=== PATIENT | female | born 1950 | race Caucasian/White ===

== ENCOUNTER 2016-09-15 09:34 | Inpatient (IN) | payer MEDICARE, MEDICAID ==
[2016-09-15] MEDS ORDERED: Sodium Chloride 0.9% 10 ML Syringe FLUSH PRN (09:50)
[2016-09-15] MEDS ORDERED: Sodium Chloride 0.9% 500 ML IV ONE (09:54)
[2016-09-15] MEDS ORDERED: Albuterol/Ipratropium 3.0-0.5 MG/3 ML Neb Soln NEB ONE (09:55)
[2016-09-15] MEDS ORDERED: Piperacillin/Tazobactam 4.5 GM in Sodium Chloride 0.9% 100 ML IV ONE (10:19)
[2016-09-15 10:38] LABS: CHLORIDE,CL 112 mmol/L (98-107); SODIUM,NA 151 mmol/L (136-145)
[2016-09-15] MEDS ORDERED: methylPREDNISolone Sodium Succinate 125 MG/2 ML SDV IV ONE (11:31)
[2016-09-15] MEDS: D5 1/2 NS w/ 20 mEq/L KCl 1,000 ML IV SCH ×2 (12:30→21:04)
--- NOTE | 2016-09-15 12:45 | ER ---
Date of Service: 09/15/2016 SUBJECTIVE: Torey presents to the emergency room via ambulance. The patient is a resident at [facility]. Apparently, the patient had been experiencing some cough and chest congestion and had been prescribed azithromycin and has completed her course of this. She continues to experience a worsening respiratory distress, hypoxia, fever, and cough. Staff states that she has been experiencing increased lethargy and O2 saturations in the low to mid 80s. They did place her on oxygen at the [facility] and her oxygen saturation was approximately 90% on 2 L of oxygen per nasal cannula. The patient does have a history of swallowing difficulties and is at risk for aspiration pneumonia. She again also is a resident at [facility]. PAST MEDICAL HISTORY: 1. Chronic obstructive pulmonary disease. 2. Dementia. 3. Primary hypertension. 4. Heart failure. 5. Major depressive disorder. 6. History of transient ischemic attack. 7. Personal history of MRSA. 8. History of traumatic brain injury. 9. Drug-induced dyskinesia. 10.History of constipation. 11.Osteoarthritis. MEDICATIONS: 1. Acetaminophen 325 mg 2 tablets by mouth 3 times a day. 2. Albuterol nebs 2.5 mg every 2 hours as needed for cough. 3. Ativan 0.25 mg by mouth b.i.d. 4. Bisacodyl 5 mg by mouth every 72 hours as needed for constipation. 5. Budesonide 1 dose via nebulizer 2 times a day. She probably gave her some steroids to Jaime. 6. Citalopram 10 mg by mouth once daily. 7. DuoNeb 1 dose inhaled by nebulizer 4 times a day. 8. Lasix 10 mg by mouth every other morning. 9. Senna Plus 1 tablet by mouth once daily. 10.Valproic acid 1000 mg by mouth once daily. 11.Zyprexa 10 mg 1 tablet by mouth once daily. ALLERGIES: NKDA. REVIEW OF SYSTEMS: Unobtainable. PHYSICAL EXAMINATION: General: This is a 66-year-old female, who is in mild to moderate amount of respiratory distress. Vital Signs: Blood pressure is 116/69, pulse rate is 99, temperature is 38.7, respiratory rate 40, and O2 saturation 94% on 2 L oxygen per nasal cannula. Skin: Warm to touch. Pale and dry. HEENT: Mouth, oral mucosa is somewhat dry. No erythema or exudate noted in the hypopharynx. Neck: Supple. No masses. There is no lymphadenopathy. No JVD noted. Hepatojugular reflux is within normal limits. Lungs: Diminished throughout. She does have crackles and diminished breath sounds bilaterally. Heart: Regular rate and rhythm. Abdomen: Soft, nontender. There is no hepatosplenomegaly noted. There is no masses noted. Extremities: Without edema. Neurologic: She is somnolent but easily arousable. She is not able to recall where she is, but does know her name. She was able to state that she was not feeling well. DIAGNOSTIC DATA: A 12-lead EKG was obtained showing a sinus rhythm without any acute ST or T-wave abnormalities. A portable chest x-ray was obtained. She does have evidence of bilateral infiltrates. Hematology; WBC is 11.0, hemoglobin is 16.3, and platelets are 192. Coags, PT is 12.5, INR is 1.1. Chemistry; sodium is 151, potassium is 3.6, chloride is 112, bicarb is 32, BUN is 32, creatinine is 1.1. GFR is 49, glucose is 120, lactic acid is 3.0. Calcium is 9.4, corrected calcium is 10.1. AST is 53, ALT is 74, alkaline phosphatase is 103. Troponin is 0.018. C-reactive protein is 1.1, total protein is 7.6, albumin is 3.1. Urinalysis reveals a dark cloudy specimen. Specific gravity is 1.015. This was after approximately 250 mL fluid bolus. Protein was 30, negative for glucose. She did have trace ketones, negative occult blood, nitrites, small bilirubin, 4 urobilinogen, negative leukocyte esterase. She did have few bacteria. EMERGENCY ROOM COURSE: The patient was again on oxygen per nasal cannula, it is approximately 2 L/minute. She was given a DuoNeb breathing treatment. She was given Zosyn 4.5 g IV in the ER. She was given a 500 mL normal saline fluid bolus. She is going to be given 125 mg of Solu-Medrol IV. The patient remained stable in my care in the emergency room. ASSESSMENT: 1. Healthcare-acquired versus aspiration pneumonia. 2. Chronic obstructive pulmonary disease exacerbation. PLAN: The patient will be admitted to our facility acutely. I did speak with Forest Goff regarding this patient. Discussed the addition of vancomycin for this patient. He felt that she did not need the vancomycin, but I am going to contact him and let him know that the patient does have a history of MRSA. The patient is a code 2; do not resuscitate, do not intubate. MWK: 09/15/2016 11:36:18 MODL: 09/15/2016 12:34:31 /[id number]
[2016-09-15] MEDS: Piperacillin/Tazobactam 3.375 GM in Sodium Chloride 0.9% 100 ML IV SCH (17:26)
[2016-09-15] MEDS ORDERED: Acetaminophen 500 MG Tab PO PRN (19:40)
[2016-09-15] MEDS: methylPREDNISolone Sodium Succinate 125 MG/2 ML SDV IV SCH (19:56)
[2016-09-16] MEDS: Piperacillin/Tazobactam 3.375 GM in Sodium Chloride 0.9% 100 ML IV SCH ×4 (00:11→17:28)
[2016-09-16] MEDS: methylPREDNISolone Sodium Succinate 125 MG/2 ML SDV IV SCH ×3 (04:34→21:17)
[2016-09-16] MEDS: D5 1/2 NS w/ 20 mEq/L KCl 1,000 ML IV SCH (05:41)
[2016-09-16] MEDS: Enoxaparin 40 MG/0.4 ML Syringe SUBCUT SCH (07:36)
[2016-09-16 07:40] LABS: CHLORIDE,CL 115 mmol/L (98-107); SODIUM,NA 151 mmol/L (136-145)
[2016-09-16] MEDS ORDERED: Albuterol 0.083% 2.5 MG/3 ML Neb Soln NEB PRN (08:27)
[2016-09-16] MEDS ORDERED: Hydrocortisone 1% Crm 30 GM Tube TOP PRN (08:27)
[2016-09-16] MEDS ORDERED: Bisacodyl 5 MG Tab PO PRN (08:27)
[2016-09-16] MEDS ORDERED: BIOTENE MOISTURIZING MOUTH PO PRN (08:27)
[2016-09-16] MEDS ORDERED: Furosemide 20 MG Tab PO SCH (08:45)
--- NOTE | 2016-09-16 09:12 | PCM.PN ---
- General Info Date of Service: 09/16/16 Admission Dx/Problem (Free Text): Subjective: Patient was admitted yesterday from the ER by physician's entry level marketing assistant for fever and mild hypoxia. Possible pneumonitis, healthcare associated versus aspiration, versus exacerbation of COPD. She had a mild leukocytosis, mildly hypernatremic from pre-body water deficit. Decreased access to fluids from her chronic half-way debility. No vomiting no abdominal pain no dysuria her urine analysis is pretty unremarkable. No convincing infiltrates by chest x- ray. She's done well overnight, did spike one mild fever. Oxygen blood pressure improved. Objective: Temperature 36.2 Celsius, pulse 78, oxygen saturation 98% on 2 L, blood pressure 108/70. Alert female laying in bed no acute distress she denies any pain or dyspnea. Lungs reveal diminished sounds both bases no wheeze rhonchi or rales. Heart regular rate and rhythm. Abdomen soft nontender extremities warm well perfused without edema. Labs: No leukocytosis has resolved. She remains hypernatremic at 151 hyperchloremic at 115. Assessment and plan: Fever, hypoxia. Appears to be more exacerbation of COPD, possibly viral, had been on Z-Dalton prior. Improved on Solu-Medrol and Zosyn here. Leukocytosis has resolved. No sarmad infiltrate on x-ray beyond her chronic atelectasis basilar from debility. Wean oxygen today, patient's baseline at home is 92% on room air. Possible discharge to [facility] in a.m. on PO prednisone and augmentin if continued improvement Hypernatremia This is a free water deficit of ~1.2L from her generalized debility and recent illness. Change D5 half with potassium to plain half- normal @125cc/hr. Most importantly stop nothing by mouth and allow her access to water, goal be 1 L of plain water today along with a regular diet. Recheck electrolytes in a.m. should be closer to her baseline sodium of 145 by then. Free Water Deficit in Hypernatremia from [employer] on 09/16/2016 RESULT SUMMARY: 1.2 L Free Water Deficit INPUTS: Sex > Female Age range > Elderly Weight > 145 lbs Sodium > 151 mEq/L Sodium desired > 145 mEq/L - Patient Data Vitals - most recent: Last Vital Signs Temp 36.4 C 09/16/16 05:56 Pulse 73 09/16/16 05:56 Resp 20 03/09/17 05:56 BP 108/93 H 09/16/16 05:56 Pulse Ox 97 09/16/16 07:48 Weight - most recent: 61.326 kg I&O - last 24 hours: Intake & Output 09/15/16 09/16/16 09/16/16 22:59 06:59 14:59 Intake Total 694 1668 0 Balance 694 1668 0 Lab Results last 24 hrs: Laboratory Results - last 24 hr 09/16/16 09/16/16 Range/Units 06:33 06:33 WBC 6.5 (4.0-10.0) x10^3/uL RBC 4.44 (4.00-5.50) x10^6/uL Hgb 14.2 (12.0-16.0) g/dL Hct 45.3 (33.0-47.0) % MCV 102.0 H (78.0-93.0) fL MCH 32.0 (26.0-32.0) pg MCHC 31.3 L (32.0-36.0) g/dL RDW Coeff of Arun 12.9 (10.0-15.0) % Plt Count 159 (130-400) x10^3/uL Sodium 151 H (136-145) mmol/L Potassium 4.0 (3.5-5.1) mmol/L Chloride 115 H (98-107) mmol/L Carbon Dioxide 28 (21-32) mmol/L BUN 26 H (7-18) mg/dL Creatinine 0.8 (0.55-1.02) mg/dL Est Cr Clr Drug Dosing 65.16 mL/min Estimated GFR (MDRD) > 60 Glucose 158 H (74-106) mg/dL Calcium 7.8 L (8.5-10.1) mg/dL Med Orders - Current: Current Medications Acetaminophen (Tylenol Extra Strength) 500 mg PO Q6H PRN PRN Reason: Fever Last Admin: 09/15/16 19:55 Dose: 500 mg Acetaminophen (Tylenol) 650 mg PO TID KOREY Albuterol (Proventil Neb Soln) 2.5 mg NEB Q2H PRN PRN Reason: Cough Albuterol/Ipratropium (Duoneb 3.0-0.5 Mg/3 Ml) 3 ml NEB QID KOREY Bisacodyl (Dulcolax) 5 mg PO Q72H PRN PRN Reason: Constipation Budesonide (Pulmicort) 0.5 mg NEB BID [facility] Citalopram Hydrobromide (Celexa) 10 mg PO DAILY [facility] Enoxaparin Sodium (Lovenox) 40 mg SUBCUT DAILY [facility] Last Admin: 09/16/16 07:36 Dose: 40 mg Furosemide (Lasix) 10 mg PO Q48H [facility] Hydrocortisone (Hydrocortisone 1% Crm) gm TOP DAILY PRN PRN Reason: eczema Piperacillin Sod/Tazobactam (Sod 3.375 gm/ Sodium Chloride) 100 mls @ 200 mls/ hr IV Q6H [facility] Last Admin: 09/16/16 05:41 Dose: 200 mls/hr Sodium Chloride (Sodium Chloride 0.45%) 1,000 mls @ 125 mls/hr IV ASDIRECTED [facility] Lorazepam (Ativan) 0.25 mg PO BID [facility] Methylprednisolone Sodium Succinate (Solu-Medrol) 125 mg IV Q8H [facility] Last Admin: 09/16/16 04:34 Dose: 125 mg Non-Formulary Medication (Saliva Stimulant Agents Comb.3 [Biotene Moisturizing Mouth]) 1 spray PO ASDIRECTED PRN PRN Reason: Dryness Non-Formulary Medication (Saliva Stimulant Agents Comb.3 [Biotene Moisturizing Mouth]) 1 spray PO DAILY [facility] Non-Formulary Medication (Valproic Acid (As Sodium Salt) [Valproic Acid]) 500 mg PO DAILY [facility] Non-Formulary Medication (Valproic Acid (As Sodium Salt) [Valproic Acid]) 1, 000 mg PO DAILY [facility] Olanzapine (Zyprexa) 10 mg PO DAILY [facility] Senna (Senna) 8.6 mg PO QPM [facility] Sodium Chloride (Saline Flush) 10 ml FLUSH ASDIRECTED PRN PRN Reason: Keep Vein Open Discontinued Medications Albuterol/Ipratropium (Duoneb 3.0-0.5 Mg/3 Ml) 3 ml NEB ONETIME ONE Stop: 09/15/16 09:56 Last Admin: 09/15/16 10:26 Dose: 3 ml Sodium Chloride (Normal Saline) 500 mls @ 1,000 mls/hr IV .BOLUS ONE Stop: 09/15/16 10:23 Last Admin: 09/15/16 10:20 Dose: 1,000 mls/hr Piperacillin Sod/Tazobactam (Sod 4.5 gm/ Sodium Chloride) 100 mls @ 200 mls/hr IV ONETIME ONE Stop: 09/15/16 10:48 Last Admin: 09/15/16 10:35 Dose: 200 mls/hr Potassium Chloride/Dextrose/Sod Cl (D5 1/2 Ns W/ 20 Meq/L Kcl) 1,000 mls @ 125 mls/hr IV ASDIRECTED [facility] Last Admin: 09/16/16 05:41 Dose: 125 mls/hr Methylprednisolone Sodium Succinate (Solu-Medrol) 125 mg IV ONETIME ONE Stop: 09/15/16 11:32 Last Admin: 09/15/16 11:42 Dose: 125 mg - Problem List Review Problem List Initiated/Reviewed/Updated: Yes - My Orders Last 24 Hours: My Active Orders 09/15/16 19:40 Acetaminophen [Tylenol Extra Strength] 500 mg PO Q6H PRN 09/16/16 08:27 Albuterol [Proventil Neb Soln] 2.5 mg NEB Q2H PRN Bisacodyl [Dulcolax] 5 mg PO Q72H PRN Hydrocortisone [Hydrocortisone 1% Crm] 1 appful TOP DAILY PRN Saliva Stimulant Agents Comb.3 [Biotene Moisturizing Mouth] 1 spray PO ASDIRECTED PRN 09/16/16 08:30 Furosemide [Lasix] 10 mg PO Q48H Sodium Chloride 0.45% @ 125 MLS/HR(1,000ml) Sodium Chloride 0.45% 1,000 ml IV ASDIRECTED Valproic Acid (As Sodium Salt) [Valproic Acid] 1,000 mg PO DAILY Valproic Acid (As Sodium Salt) [Valproic Acid] 500 mg PO DAILY 09/16/16 09:02 RT Ventilator Weaning [RC] .As Directed 09/16/16 12:00 Acetaminophen [Tylenol] 650 mg PO TID Albuterol/Ipratropium [DuoNeb 3.0-0.5 MG/3 ML] 3 ml NEB QID 09/16/16 20:00 Budesonide [Pulmicort] 0.5 mg NEB BID LORazepam [Ativan] 0.25 mg PO BID Sennosides [Senna] 8.6 mg PO QPM 03/09/17 Lunch Regular Diet [DIET] 09/17/16 05:11 BASIC METABOLIC PANEL,BMP [CHEM] AM 09/17/16 08:00 Citalopram [Celexa] 10 mg PO DAILY OLANZapine [ZyPREXA] 10 mg PO DAILY Saliva Stimulant Agents Comb.3 [Biotene Moisturizing Mouth] 1 spray PO DAILY
[2016-09-16] MEDS: Citalopram 10 MG Tab PO SCH (09:39)
[2016-09-16] MEDS: LORazepam 0.5 MG Tab PO SCH ×2 (09:39→21:14)
[2016-09-16] MEDS: OLANZapine 10 MG Tab PO SCH (09:39)
[2016-09-16] MEDS: Valproic Acid 250 MG/5 ML Soln 5 ML UD Cup PO SCH (09:39)
[2016-09-16] MEDS: Sodium Chloride 0.45% 1,000 ML IV SCH ×2 (09:43→18:51)
[2016-09-16] MEDS: Albuterol/Ipratropium 3.0-0.5 MG/3 ML Neb Soln NEB SCH ×3 (10:52→21:19)
[2016-09-16] MEDS: Acetaminophen 325 MG Tab PO SCH ×3 (11:19→21:13)
[2016-09-16] MEDS ORDERED: Valproic Acid 250 MG/5 ML Soln 5 ML UD Cup PO SCH (20:00)
[2016-09-16] MEDS ORDERED: Sennosides 8.6 MG Tab PO SCH (20:00)
[2016-09-16] MEDS: Budesonide 0.5 MG/2 ML Neb Susp NEB SCH (21:20)
[2016-09-17] MEDS: Piperacillin/Tazobactam 3.375 GM in Sodium Chloride 0.9% 100 ML IV SCH ×3 (00:36→11:26)
[2016-09-17] MEDS: Sodium Chloride 0.45% 1,000 ML IV SCH (03:31)
[2016-09-17] MEDS: methylPREDNISolone Sodium Succinate 125 MG/2 ML SDV IV SCH ×2 (05:27→11:25)
[2016-09-17 06:49] LABS: CHLORIDE,CL 111 mmol/L (98-107); SODIUM,NA 146 mmol/L (136-145)
[2016-09-17] MEDS: Albuterol/Ipratropium 3.0-0.5 MG/3 ML Neb Soln NEB SCH ×2 (07:10→11:03)
[2016-09-17] MEDS: Budesonide 0.5 MG/2 ML Neb Susp NEB SCH (07:11)
[2016-09-17] MEDS ORDERED: BIOTENE MOISTURIZING MOUTH PO SCH (08:00)
[2016-09-17] MEDS: Valproic Acid 250 MG/5 ML Soln 5 ML UD Cup PO SCH (08:03)
[2016-09-17] MEDS: LORazepam 0.5 MG Tab PO SCH (08:03)
[2016-09-17] MEDS: OLANZapine 10 MG Tab PO SCH (08:03)
[2016-09-17] MEDS: Citalopram 10 MG Tab PO SCH (08:03)
[2016-09-17] MEDS: Enoxaparin 40 MG/0.4 ML Syringe SUBCUT SCH (08:04)
[2016-09-17] MEDS: Acetaminophen 325 MG Tab PO SCH ×2 (08:05→11:25)
[2016-09-17 10:26] VITALS: BP 109/53
--- NOTE | 2016-09-17 21:00 | PCM.DCSUM1 ---
Discharge Summary - Discharge Data Discharge Date: 09/17/16 Discharge Disposition: DC/Tfer to SNF 03 Condition: Fair - Discharge Plan Prescriptions/Med Rec: Levofloxacin [Levaquin] 250 mg PO Q24H #5 tablet Home Medications: Home Meds Acetaminophen [Tylenol] 650 mg PO TID 09/15/16 [History] Albuterol Sulfate 2.5 mg NEB Q2H PRN 09/15/16 [History] Albuterol/Ipratropium [DuoNeb 3.0-0.5 MG/3 ML] 3 ml NEB QID 09/15/16 [History] Bisacodyl 5 mg PO Q72H PRN 09/15/16 [History] Budesonide [Pulmicort] 0.5 mg NEB BID 09/15/16 [History] Citalopram Hydrobromide [Celexa] 10 mg PO DAILY 09/15/16 [History] Furosemide [Lasix] 10 mg PO Q48H 09/15/16 [History] Hydrocortisone [Hydrocortisone 1% Crm] 1 appful TOP DAILY PRN 09/15/16 [History] LORazepam [Ativan] 0.25 mg PO BID 09/15/16 [History] OLANZapine [ZyPREXA] 10 mg PO DAILY 09/15/16 [History] Saliva Stimulant Agents Comb.3 [Biotene Moisturizing Mouth] 1 spray PO ASDIRECTED PRN 09/15/16 [History] Saliva Stimulant Agents Comb.3 [Biotene Moisturizing Mouth] 1 spray PO DAILY 02/24 [History] Sennosides [Senna] 8.6 mg PO QPM 09/15/16 [History] Valproic Acid (As Sodium Salt) [Valproic Acid] 1,000 mg PO DAILY 09/15/16 [ History] Valproic Acid (As Sodium Salt) [Valproic Acid] 500 mg PO DAILY 09/15/16 [History ] Acetaminophen [Tylenol Extra Strength] 500 mg PO Q6H PRN #0 tablet 09/17/16 [Rx] Levofloxacin [Levaquin] 250 mg PO Q24H #5 tablet 09/17/16 [Rx] Forms: ED Department Discharge Referrals: Te Hayes MD [Primary Care Provider] - - Discharge Summary/Plan Comment Discharge Summary/Plan Comment: Final diagnosis: -Exacerbation of COPD Secondary diagnoses: -Schizoaffective disorder -Dementia -Atherosclerosis Reason for admission: Cough, fever, hypoxia in spite of Rx with Zithromax for exacerbation of COPD. Has previously had a spell of very poor oral intake and had been on Hospice some months ago but had recovered and no longer on Hospice care. Regular Psych F/U for her concern affective disorder. Hx of MRSA. Initial Findings: -In moderate respiratory distress -CXR difficult to read, was a single view and patient unable to sit up -Somnolent -Oximetry 94% on oxygen 2L/min -Mild hypernatremia of 151, K+ 3.6; GFR 49, lactic acid 3.0 Treatment and course in Hospital: She was started on IV Zosyn, soon became afebrile and remained so. Her respiratory distress cleared rather quickly, her blood cultures remain negative and with that and her clinical improvement, including becoming much more alert and talking eagerly, it was felt she could switch to oral antibiotic and go back to [facility] on the third hospital day. She was weaned from oxygen on the third hospital day before D/C. Condition on discharge: -Alert and speaking, although has dementia and schizoaffective disorder -Heart sounds normal and regular -Lungs clear -Lying flat without dyspnea -Oximetry OK on room air Discharge Plan: -Taken off of oxygen -Levaquin 250 mg p.o. daily 5 days -Continue same medications otherwise - Patient Data Vitals - Most Recent: Last Vital Signs Temp 36.3 C 09/17/16 10:00 Pulse 68 09/17/16 10:00 Resp 18 09/17/16 10:00 BP 109/53 L 09/17/16 10:00 Pulse Ox 94 L 09/17/16 12:34 Weight - Most Recent: 61.326 kg I&O - Last 24 hours: Intake & Output 09/17/16 09/17/16 09/17/16 06:59 14:59 22:59 Intake Total 1465 660 Balance 1465 660 Lab Results - Last 24 hrs: Laboratory Results - last 24 hr 09/17/16 Range/Units 06:14 Sodium 146 H (136-145) mmol/L Potassium 3.6 (3.5-5.1) mmol/L Chloride 111 H (98-107) mmol/L Carbon Dioxide 28 (21-32) mmol/L BUN 21 H (7-18) mg/dL Creatinine 0.8 (0.55-1.02) mg/dL Est Cr Clr Drug Dosing 65.16 mL/min Estimated GFR (MDRD) > 60 Glucose 159 H (74-106) mg/dL Calcium 7.9 L (8.5-10.1) mg/dL Med Orders - Current: Current Medications Discontinued Medications Acetaminophen (Tylenol Extra Strength) 500 mg PO Q6H PRN PRN Reason: Fever Last Admin: 09/15/16 19:55 Dose: 500 mg Acetaminophen (Tylenol) 650 mg PO TID [facility] Last Admin: 09/17/16 11:25 Dose: 650 mg Albuterol (Proventil Neb Soln) 2.5 mg NEB Q2H PRN PRN Reason: Cough Albuterol/Ipratropium (Duoneb 3.0-0.5 Mg/3 Ml) 3 ml NEB ONETIME ONE Stop: 09/15/16 09:56 Last Admin: 09/15/16 10:26 Dose: 3 ml Albuterol/Ipratropium (Duoneb 3.0-0.5 Mg/3 Ml) 3 ml NEB QIDRT [facility] Last Admin: 09/17/16 11:03 Dose: 3 ml Bisacodyl (Dulcolax) 5 mg PO Q72H PRN PRN Reason: Constipation Budesonide (Pulmicort) 0.5 mg NEB BIDRT [facility] Last Admin: 09/17/16 07:11 Dose: 0.5 mg Citalopram Hydrobromide (Celexa) 10 mg PO DAILY [facility] Last Admin: 09/17/16 08:03 Dose: 10 mg Enoxaparin Sodium (Lovenox) 40 mg SUBCUT DAILY [facility] Last Admin: 09/17/16 08:04 Dose: 40 mg Furosemide (Lasix) 10 mg PO Q48H [facility] Last Admin: 09/16/16 09:39 Dose: 10 mg Hydrocortisone (Hydrocortisone 1% Crm) 0 gm TOP DAILY PRN PRN Reason: eczema Sodium Chloride (Normal Saline) 500 mls @ 1,000 mls/hr IV .BOLUS ONE Stop: 09/15/16 10:23 Last Admin: 09/15/16 10:20 Dose: 1,000 mls/hr Piperacillin Sod/Tazobactam (Sod 4.5 gm/ Sodium Chloride) 100 mls @ 200 mls/hr IV ONETIME ONE Stop: 09/15/16 10:48 Last Admin: 09/15/16 10:35 Dose: 200 mls/hr Potassium Chloride/Dextrose/Sod Cl (D5 1/2 Ns W/ 20 Meq/L Kcl) 1,000 mls @ 125 mls/hr IV ASDIRECTED [facility] Last Admin: 09/16/16 05:41 Dose: 125 mls/hr Piperacillin Sod/Tazobactam (Sod 3.375 gm/ Sodium Chloride) 100 mls @ 200 mls/ hr IV Q6H [facility] Last Admin: 09/17/16 11:26 Dose: 200 mls/hr Sodium Chloride (Sodium Chloride 0.45%) 1,000 mls @ 125 mls/hr IV ASDIRECTED [facility] Last Admin: 09/17/16 03:31 Dose: 125 mls/hr Lorazepam (Ativan) 0.25 mg PO BID [facility] Last Admin: 09/17/16 08:03 Dose: 0.25 mg Methylprednisolone Sodium Succinate (Solu-Medrol) 125 mg IV ONETIME ONE Stop: 09/15/16 11:32 Last Admin: 09/15/16 11:42 Dose: 125 mg Methylprednisolone Sodium Succinate (Solu-Medrol) 125 mg IV Q8H [facility] Last Admin: 09/17/16 11:25 Dose: 125 mg Biotene Moisturizing Mouth Solution Ptom 1 spray PO ASDIRECTED PRN PRN Reason: Dryness Biotene Moisturizing Mouth Solution Ptom 1 spray PO DAILY [facility] Last Admin: 09/17/16 08:09 Dose: Not Given Olanzapine (Zyprexa) 10 mg PO DAILY [facility] Last Admin: 09/17/16 08:03 Dose: 10 mg Senna (Senna) 8.6 mg PO QPM [facility] Last Admin: 09/16/16 21:13 Dose: 8.6 mg Sodium Chloride (Saline Flush) 10 ml FLUSH ASDIRECTED PRN PRN Reason: Keep Vein Open Valproic Acid (Depakene) 500 mg PO DAILY [facility] Last Admin: 09/17/16 08:03 Dose: 500 mg Valproic Acid (Depakene) 1,000 mg PO QPM [facility] Last Admin: 09/16/16 21:11 Dose: 1,000 mg *Q Meaningful Use (DIS) - VTE *Q VTE Criteria *Q: - Stroke *Q Stroke Criteria *Q: - AMI *Q AMI Criteria *Q:
--- NOTE | 2016-09-21 07:50 | ER ---
Date of Service: 09/15/2016 ADDENDUM: This patient's emergency room note may be used as her admission H and P. MWK: 09/21/2016 07:21:33 MODL: 09/21/2016 07:31:43 /[id number]
== END 2016-09-17 14:00 | DRG 191 ==
LOC: VM.ED 09:34 → VM.MS 11:20
PROVIDERS: ADMIT Family Medicine; ATTEND Family Medicine
DX: J18.9 Pneumonia, unspecified organism (principal); J44.0 Chronic obstructive pulmonary disease with (acute) lower respiratory infection; J44.1 Chronic obstructive pulmonary disease with (acute) exacerbation; E87.0 Hyperosmolality and hypernatremia; R50.9 Fever, unspecified; R09.02 Hypoxemia; F32.9 Major depressive disorder, single episode, unspecified; G24.01 Drug induced subacute dyskinesia; F03.90 Unspecified dementia, unspecified severity, without behavioral disturbance, psychotic disturbance, mood disturbance, and anxiety; F25.9 Schizoaffective disorder, unspecified; I70.90 Unspecified atherosclerosis; I10 Essential (primary) hypertension; I50.9 Heart failure, unspecified; M19.90 Unspecified osteoarthritis, unspecified site; Z86.73 Personal history of transient ischemic attack (TIA), and cerebral infarction without residual deficits; Z86.14 Personal history of Methicillin resistant Staphylococcus aureus infection; Z87.820 Personal history of traumatic brain injury; Z79.899 Other long term (current) drug therapy
CPT/HCPCS: 36415; 71010; 80053; 81001; 83605; 84484; 85025; 85610; 86140; 87040 ×2; 87804 ×2; 93005; 94640; 96365; 99285; J2543; J7030; J7050; 80048; 85027; 94760; 96375; A9270-GY; J1650; J2930; J3480